=== PATIENT | male | born 2000 | race Caucasian/White ===

== ENCOUNTER 2023-06-08 16:45 | Outpatient (CLI) | payer OTHER | END 2023-06-08 23:59 | disposition home or self-care (01) | LOC: RAD 16:45 | PROVIDERS: ATTEND Orthopaedic Surgery | DX: Z11.1 Encounter for screening for respiratory tuberculosis (principal); M43.8X4 Other specified deforming dorsopathies, thoracic region | CPT/HCPCS: 71046 ==

== ENCOUNTER 2023-07-01 17:23 | Emergency (ER) | payer MEDICAID, OTHER ==
[~2023-07-01] VITALS: Ht 177.8 cm; Wt 97.3 kg
[2023-07-01 17:31] VITALS: BP 143/90; PULSE 105; O2SAT 97
[2023-07-01] MEDS ORDERED: FLUT16SP2 BOTHNARES (18:28)
[2023-07-01 18:40] VITALS: RESP 16; TEMP 98.6
== END 2023-07-01 18:43 | disposition home or self-care (01) ==
LOC: ER 17:24
DX: R51.9 Headache, unspecified (principal); R42 Dizziness and giddiness; Z79.899 Other long term (current) drug therapy
CPT/HCPCS: 71045; 99283

== ENCOUNTER 2024-04-05 12:22 | Emergency (ER) | payer MEDICAID, OTHER ==
[~2024-04-05] VITALS: Ht 177.8 cm; Wt 124.2 kg
[~2024-04-05 12:22] MED LIST: FLUT16SP2 BOTHNARES
[2024-04-05 12:45] VITALS: BP 153/87; PULSE 121; TEMP 97.8; O2SAT 97
[2024-04-05] MEDS ORDERED: METH-798 PO (15:34)
[2024-04-05] MEDS ORDERED: MELO-102 PO (15:34)
[2024-04-05 16:08] VITALS: RESP 18
[2024-04-05] MEDS: ketorolac trometh 30MG/ML vial 30 MG/ML VIAL IM ONE (16:08)
== END 2024-04-05 16:12 | disposition home or self-care (01) ==
LOC: ER 12:23
DX: S39.012A Strain of muscle, fascia and tendon of lower back, initial encounter (principal); X58.XXXA Exposure to other specified factors, initial encounter; Y93.89 Activity, other specified; Y92.89 Other specified places as the place of occurrence of the external cause; Y99.8 Other external cause status
CPT/HCPCS: 96372; 99283; J1885

== ENCOUNTER 2024-11-09 12:15 | Emergency (ER) | payer OTHER ==
[~2024-11-09] VITALS: Ht 175.3 cm; Wt 127.8 kg
[~2024-11-09 12:15] MED LIST changes: +MELO-102 PO; +METH-798 PO
[2024-11-09 12:24] VITALS: BP 143/93; RESP 16; O2SAT 96
--- NOTE | 2024-11-09 12:26 | Physician Documentation ---
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 Reports that hot oil splashed into his right eye. Reports blurry vision ever since. Denies other injuries or foreign bodies into the eye. Medication Reconciliation Allergies: Coded Allergies: No Known Allergies (Unverified , 07/01/23) Scheduled Fluticasone Propionate (Flonase), 2 SPRAYS BOTHNARES DAILY Meloxicam (Meloxicam), 1 TAB PO DAILY Methocarbamol (Methocarbamol), 1-2 TAB PO Q8H Review of Systems ROS As stated above in the HPI, otherwise all systems are reviewed and negative. Physical Exam Physical Exam General: Alert, no apparent distress. HEENT: PERRL, EOMI, no injection, moist mucous membranes. Fluorescein stain with wood's lamp: Neck: Full range of motion. Respiratory: Lungs clear, no respiratory distress. Chest: No accessory muscle use. Cardiovascular: Regular rate and rhythm, no murmurs. Gastrointestinal: Soft, nontender, nondistended. Bowels sounds present. Extremities: Normal range of motion, no deformity. Neurologic: Oriented x4. Psychiatric: Normal mood and affect. Skin: Normal color, warm and dry. No edema, no ecchymosis. Procedures Procedures Exam of the right eye with use of fluorescein stain and Wood's lamp shows no corneal abrasion, but there was evidence of global irritation of the eye. The exam was accomplished by putting two drops of procaine into the right eye prior to application of the fluorescein stain. Patient will be treated with erythromycin eye ointment. He is to follow up with primary care provider or return if worse. Progress Results/Orders Results/Orders Orders - HAYDEE REBOLLEDO NP Eye Procedure (11/09/24 12:23) Completed Orders - HAYDEE REBOLLEDO [employer] Proparacaine Ophth Solution (Alcaine Oph (11/09/24 12:25) Erythromycin Ophth Ointment (Ilotycin Op (11/09/24 12:25) Medications Received in ER Medications (Trade) Dose Ordered Sig/Griffin Route PRN Reason Start Time Stop Time Status Last Admin Dose Admin (Ilotycin ophth ointment) 0.25 inch ONCE ONCE RIGHTEYE 11/09/24 12:25 11/09/24 12:26 DC 9/18/25 12:52 0.25 INCH Vital Signs 11/09/24 12:24 Pulse 118 Resp 16 B/P (MAP) 143/93 Pulse Ox 96 Medical Decision Making Ear Diff. Dx: Considerations: Include: Abrasion, Cerumen impaction, Foreign body, Otitis externa, Barotrauma, Otitis media, Perforation, Referred pain- dental, Referred pain-pharyngitis, Referred pain-sinusitis, Referred pain-TMJ syn., Tympanic Membrane Injury Departure Time of Disposition: 12:55 Disposition: 01 HOME / SELF CARE / HOMELESS Impression: Primary Impression: Corneal abrasion Qualified Codes: S05.01XA - Injury of conjunctiva and corneal abrasion without foreign body, right eye, initial encounter Condition: Stable Discharge Instructions: Corneal Abrasion Additional Instructions: use the prescribed antibiotics in the right eye. Followup with your primary care. Return if worse. Referrals: NO PRIMARY CARE PROVIDER (PCP) Prescriptions Erythromycin Base Opth. Ointment* (Erythromycin Opth. Ointment*) 1 Gm Tube 1 APPLIC RIGHTEYE Q4HWA, #1 EACH Prov: HAYDEE REBOLLEDO [employer] 11/09/24 Education Educated: Patient, Family Educated regarding: diagnosis, treatment, prognosis, need for follow up Signature Scribe Signature: x Attestation: The note accurately reflects work and decisions made by me.Haydee Rebolledo - [place] 11/09/24 12:26 HAYDEE REBOLLEDO NP Nov 09, 2024 12:26
[2024-11-09] MEDS: proparacaine 0.5% ophthalmic drops 15ml RIGHTEYE ONE (12:52)
[2024-11-09] MEDS: erythromycin ophthalmic ointment 1gm tube RIGHTEYE ONE (12:52)
[2024-11-09 12:55] VITALS: PULSE 16
[2024-11-09] MEDS ORDERED: ERYT1OIN6 RIGHTEYE (12:58)
== END 2024-11-09 13:04 | disposition home or self-care (01) ==
LOC: ER 12:15
DX: S05.01XA Injury of conjunctiva and corneal abrasion without foreign body, right eye, initial encounter (principal); Z79.899 Other long term (current) drug therapy; X58.XXXA Exposure to other specified factors, initial encounter; Y93.89 Activity, other specified; Y92.000 Kitchen of unspecified non-institutional (private) residence as the place of occurrence of the external cause; Y99.8 Other external cause status
CPT/HCPCS: 99283